=== PATIENT | female | born 1995 ===

== ENCOUNTER 2017-05-25 20:16 | Emergency (ER) | payer OTHER ==
[~2017-05-25] VITALS: Ht 162.6 cm; Wt 59.0 kg
[~2017-05-25 20:16] MED LIST: CIPRO500 MG PO; PERCOCET 5/3251 TAB PO; [UNRECOGNIZED DRUG - OTHER] TP
== END 2017-05-25 22:37 | disposition home or self-care (01) ==
LOC: ER 20:16
DX: N75.1 Abscess of Bartholin's gland (principal)

== ENCOUNTER 2017-06-05 08:35 | Emergency (ER) | payer OTHER ==
[~2017-06-05] VITALS: Ht 162.6 cm; Wt 54.4 kg
== END 2017-06-05 16:04 | disposition home or self-care (01) ==
LOC: ER 08:35
DX: A54.9 Gonococcal infection, unspecified (principal)